=== PATIENT | female | born 1960 | race American Indian/Alaskan Native ===

== ENCOUNTER 2019-06-21 08:12 | Outpatient (CLI) | payer OTHER ==
--- NOTE | 2019-06-21 12:24 | PET Report ---
PET/CT HISTORY: R39.89. Initial staging of left breast cancer TECHNIQUE: The patient's fasting blood glucose was 123. The patient weighed 265 lbs. The patient w as injected with 15.3 mCi of FDG in the right antecubital fossa at 0931 hours and imaging was started at 1041 hours. The patient was imaged from the skull base to the thighs. All CT scans at this [facility] are performed using CT dose reduction for ALARA by means of automated exposure control. Images we re reviewed on a workstation. COMPARISON: None at this facility FINDINGS: IMAGED BRAIN: [Physiologic FDG uptake] NECK: [Physiologic FDG uptake] CHEST WALL: [Physiologic FDG uptake]. Bilateral mastectomy changes are noted. No recurrent chest wal l mass is appreciated. There is a small ovoid hypodensity in the anterior soft tissues just to the le ft of midline measuring 2.6 x 1.5 cm. This has the appearance of a small seroma. No hypermetabolic ac tivity. MEDIASTINUM: [Physiologic FDG uptake] LUNGS: [Physiologic FDG uptake]. 5 mm calcified granuloma is noted in the superior segment of the le ft lower lobe. No suspicious pulmonary lesion. HEPATOBILIARY: [Physiologic FDG uptake]. Liver SUV measures 5.1. PANCREAS: [Physiologic FDG uptake SPLEEN: [Physiologic FDG uptake] KIDNEYS/BLADDER: [Physiologic FDG uptake] ADRENAL GLANDS: [Physiologic FDG uptake] GI/MESENTERY: [Physiologic FDG uptake]. Surgical suture line is noted in the pelvis involving distal small bowel loops, correlate with history. PELVIC VISCERA: [Physiologic FDG uptake]. Hysterectomy changes are suspected. LYMPH NODES: [Physiologic FDG uptake] OSSEOUS STRUCTURES: [Physiologic FDG uptake]. No suspicious bony lesion is detected. ADDITIONAL FINDINGS: [None] IMPRESSION: Negative PET CT Signer Name: Zak Hernandez Jr, MD Signed: 06/21/2019 12:20 PM Workstation Name: [id number]
== END 2019-06-21 08:13 | disposition home or self-care (01) ==
LOC: PET 08:12
PROVIDERS: ATTEND Student in an Organized Health Care Education/Training Program
DX: R93.89 Abnormal findings on diagnostic imaging of other specified body structures (principal); J98.4 Other disorders of lung
CPT/HCPCS: 78815; 82962; A9552